=== PATIENT | female | born 1980 ===

== ENCOUNTER 2024-10-14 05:10 | Day surgery (SDC) | payer OTHER ==
[2024-10-14] MEDS ORDERED: MEPERIDINE HCL/PF 50 MG/ML VIAL IV ONE (07:45)
[2024-10-14] MEDS ORDERED: DIPHENHYDRAMINE HCL 50 MG/ML VIAL 1ML IV ONE (07:45)
[2024-10-14] MEDS ORDERED: MIDAZOLAM HCL/PF 5 MG/ML VIAL IV ONE (07:45)
== END 2024-10-14 10:35 | disposition home or self-care (01) ==
LOC: AMB-ENDOS 05:10
PROVIDERS: ATTEND Surgery
DX: K29.00 Acute gastritis without bleeding (principal); D13.1 Benign neoplasm of stomach; Z91.040 Latex allergy status; K44.9 Diaphragmatic hernia without obstruction or gangrene